=== PATIENT | male | born 1950 | race Caucasian/White ===

== ENCOUNTER 2019-07-18 15:29 | Inpatient (IN) | payer OTHER, MEDICARE ==
[~2019-07-18] VITALS: Ht 167.6 cm; Wt 82.4 kg
[~2019-07-18 15:29] MED LIST: AMLO5TAB6 PO; CAPT125TA PO; CHLO125TA PO; DOXY100T2 PO; IMIT50TA PO; PRED-351 PO; SIMV10TA21 PO
[2019-07-18] MEDS ORDERED: IBUP1TAB6 PO (15:41)
[2019-07-18] MEDS ORDERED: MORPHINE 2 MG/ML 1ML VIAL (J2270) IV ONE (16:15)
[2019-07-18] MEDS ORDERED: ONDANSETRON 4MG/2ML VIAL (J2405) IV PRN (16:15)
[2019-07-18 16:35] LABS: BASO % 0.3 % (0.0-1.0); EOS # 0.1 10^3/uL (0.0-0.5); EOS % 1.3 % (0.0-3.0); HEMATOCRIT 47.6 % (42.0-52.0); HEMOGLOBIN 15.9 g/dl (13.5-17.5); LYMPH # 1.1 10^3/uL (1.5-5.0); LYMPH % 17.7 % (24.0-44.0); MEAN CORPUSCULAR HEMOGLOBIN 31.9 pg (27.0-33.0); MEAN CORPUSCULAR HGB CONC 33.4 g/dl (32.0-36.5); MEAN CORPUSCULAR VOLUME 95.4 fl (80.0-96.0); MONO # 0.4 10^3/uL (0.0-0.8); MONO % 6.5 % (0.0-5.0); NEUTROPHILS # 4.5 10^3/uL (1.5-8.5); NEUTROPHILS % 73.9 % (36.0-66.0); PLATELET COUNT, AUTOMATED 181 10^3/uL (150-450); RED BLOOD COUNT 4.99 10^6/uL (4.30-6.10); WHITE BLOOD COUNT 6.1 10^3/uL (4.0-10.0)
[2019-07-18 16:44] LABS: ALBUMIN 4.4 GM/DL (3.2-5.2); ALT/SGPT 24 U/L (12-78); BILIRUBIN,DIRECT 0.2 MG/DL (0.0-0.2); BILIRUBIN,TOTAL 0.8 MG/DL (0.2-1.0); BLOOD UREA NITROGEN 12 MG/DL (7-18); CALCIUM LEVEL 8.9 MG/DL (8.8-10.2); CARBON DIOXIDE LEVEL 25 MEQ/L (21-32); CHLORIDE LEVEL 108 MEQ/L (98-107); CK-MB VALUE MASS 1.5 NG/ML (<3.6); CPK CREATINE PHOSPHOKINASE 89 U/L (39-308); CREATININE FOR GFR 0.96 MG/DL (0.70-1.30); GLOMERULAR FILTRATION RATE > 60.0 (>42); GLUCOSE, FASTING 105 MG/DL (70-100); LIPASE 46 U/L (73-393); MB/CK RELATIVE INDEX 1.69 (< OR =4); SODIUM LEVEL 140 MEQ/L (136-145); TOTAL PROTEIN 7.4 GM/DL (6.4-8.2); TROPONIN I < 0.02 NG/ML (< 0.10)
--- NOTE | 2019-07-18 16:52 | REP ---
INDICATION: Back pain. PROCEDURE: CT lumbar spine without contrast. COMPARISON STUDIES: None FINDINGS: No acute fracture malalignment. There is atherosclerotic change of the descending aorta and iliac arteries. Soft tissues appear unremarkable. Sclerosis seen at the SI joints bilaterally, greater on the right. CONCLUSION: No acute findings. Electronically Signed by Iftikhar Sprague MD 07/18/2019 04:44 P
--- NOTE | 2019-07-18 17:11 | REP ---
CT abdomen and pelvis without IV or oral contrast: Renal stone protocol. History: Left flank and low back pain. History of kidney stones. No comparison CT study. CT findings: Preliminary digital stable hand radiograph is unremarkable. The lung bases are clear The liver and the spleen are normal in size homogeneous in texture. Gallbladder is unremarkable. There is a small descending duodenal diverticulum. No pancreatic abnormality is seen. No adrenal lesion is seen. There is no evidence of hydronephrosis on either side. There is a small parapelvic cyst at the lower pole of the left kidney. No intrarenal calculus is observed. No ureteral stone or ureteral dilation is observed. No retroperitoneal mass or adenopathy is seen. Vascular calcifications noted in a normal caliber aorta. There is a normal appendix seen in the right lower quadrant. There is roy colonic diverticulosis without CT evidence of diverticulitis. No bony destructive lesion is appreciated. Impression: No urinary tract calculus or hydronephrosis seen. Left and right colonic diverticulosis without evidence of diverticulitis. Normal appendix. No acute abdominal or pelvic abnormality. Electronically Signed by Aquiles Jones MD 07/18/2019 06:33 P
[2019-07-18] MEDS ORDERED: LIDOCAINE 5% (LIDODERM) PATCH TD ONE (19:15)
--- NOTE | 2019-07-18 19:44 | ECGEPIP ---
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
[2019-07-18] MEDS ORDERED: CHLORTHALIDONE 12.5MG PER 1/2 TABLET PO ONE (20:00)
[2019-07-18] MEDS ORDERED: MORPHINE 4 MG/ML 1ML VIAL/SYRINGE (J2270) IV ONE (20:00)
--- NOTE | 2019-07-18 20:35 | REPVR ---
PROCEDURE INFORMATION: Exam: US Duplex Left Lower Extremity Veins, Limited Exam date and time: 07/18/2019 8:21 PM Age: 68 years old Clinical indication: Pain; Leg, upper; Left; Additional info: Lle pain, R/O dvt TECHNIQUE: Imaging protocol: Real-time Duplex ultrasound of the Left Lower Extremity with 2-D thompson scale, color Doppler flow and spectral waveform analysis with image documentation. Limited exam focused on the left lower extremity veins. COMPARISON: No relevant prior studies available. FINDINGS: Left deep veins: Unremarkable. The common femoral, femoral, proximal profunda femoral and popliteal veins are patent without thrombus. Normal Doppler waveforms. Normal compressibility and/or augmentation response. Left superficial veins: Unremarkable. Saphenofemoral junction is patent without thrombus. Soft tissues: Unremarkable. IMPRESSION: No acute findings. No evidence of deep vein thrombosis. Electronically signed by: Glynn Morfin On 07/18/2019 20:32:15 PM
[2019-07-18] MEDS ORDERED: **NOTE PATIENT COMMENT** MISC XX SCH (21:00)
[2019-07-18] MEDS ORDERED: CHLO125TA PO (22:05)
[2019-07-18] MEDS ORDERED: KETOROLAC 30 MG/ML VIAL (J1885) IV ONE (23:00)
[2019-07-18] MEDS ORDERED: PERCOCET 5MG/325MG TAB PO ONE (23:45)
[2019-07-18] MEDS ORDERED: IBUPROFEN 600 MG TAB PO ONE (23:45)
--- NOTE | 2019-07-18 23:47 | HPEPDOC ---
[facility] Medical History & Physical Date of Admission Jul 18, 2019 Date of Service: Jul 18, 2019 Primary Care Physician: ELVIS PRESCOTT M.D. Attending Physician: LEX VICENTE MD History and Physical CHIEF COMPLAINT: low back pain HISTORY OF PRESENT ILLNESS: Papito Fisher is a 68-year-old male who presented to the emergency department with worsening low back pain. He states that one week ago, she was taking at [employer] when he "wrenched his back". He states that he took some Advil for the pain that day and it improved. He states that since then his pain has been manageable until the early afternoon on 07/18. He states the pain has been achy since the injury, but became sharp and worsened, prompting his visit to the emergency department. The patient also notes he has been having burning and numbness in his left thigh over the past day. He states he did try using a heat pack on his leg which made it feel worse. He states he has always had a "normal aches in his back," but denies a history of chronic back pain, or lumbar spine injuries. . He does have a history of a kidney stone and states that the pain radiating down into his groin and leg does remind him of the same pain. He states his pain with a kidney stone was worse than his current back pain. He does note that he has a history of high blood pressure and high cholesterol but does not take the medicine that his doctor has prescribed for him for these. REVIEW OF SYSTEMS: CONSTITUTIONAL: Denies fevers, chills, night sweats, fatigue, unexpected change in weight. HEENT: Denies change in vision, change in hearing. CARDIOVASCULAR: Endorses lightheadedness episode as described above. Denies chest pain, palpitations, shortness of breath. RESPIRATORY: Denies dyspnea, cough, wheezing. GASTROINTESTINAL: Denies nausea, vomiting, abdominal pain, diarrhea, constipation, blood in stool. GENITOURINARY: Denies dysuria, urinary frequency, urinary urgency. SKIN: Denies rash, lesions. MUSCULOSKELETAL: Endorses low back pain and left thigh pain as described above. NEUROLOGICAL: Denies headache, dizziness, weakness. PSYCHIATRIC: Denies change in mood. PAST MEDICAL / SURGICAL HISTORY: Chronic Hypertension Hyperlipidemia Nephrolithiasis s/p Hand surgery s/p Inguinal hernia repair SOCIAL HISTORY: Never smoker. Occasional alcohol use. Denies history of illicit/IV drug use. Lives alone. FAMILY HISTORY: Noncontributory ALLERGIES: Please see below. HOME MEDICATIONS: Please see below. PHYSICAL EXAMINATION: VITAL SIGNS: See below GENERAL: Alert, comfortable, in no acute distress HEENT: Normocephalic, atraumatic, PERRLA, EOMI, moist mucous membranes NECK: Supple, trachea midline, no lymphadenopathy, no JVD CARDIOVASCULAR: Regular rate and rhythm, normal S1 and S2. No murmurs, rubs, or gallops RESPIRATORY: Clear to auscultation bilaterally with equal air entry bilaterally. No wheezing, rhonchi, or rales. ABDOMEN: Soft, nontender, nondistended, bowel sounds present, no masses or hepatosplenomegaly appreciated EXTREMITIES: No cyanosis or edema. Pulses 2+/4 in bilateral upper and lower extr emities SKIN: [address], warm, dry MUSCULOSKELETAL: No tenderness along the spinous processes of the thoracic or lumbar spine. Increased muscle tension in bilateral paraspinal muscles of the lumbar spine. No erythema or swelling in the lumbar spine region. NEUROLOGIC: Alert and oriented 3 to person, place and time. Cranial nerves 2-12 grossly intact. No focal deficits appreciated PSYCHIATRIC: Mood and affect appropriate LABORATORY DATA: See below. IMAGING: (Impression, per radiologist report.) Lumbar spine CT: No acute findings. Abdomen/pelvic CT: No urinary tract calculus or hydronephrosis seen. Left and right colonic diverticulosis without evidence of diverticulitis. Normal appendix. No acute abdominal or pelvic abnormality. Vascular ultrasound: Left deep veins: Unremarkable. The common femoral, femoral, proximal profunda femoral and popliteal veins are patent without thrombus. Normal Doppler waveforms. Normal compressibility and/or augmentation response. Left superficial veins: Unremarkable. Saphenofemoral junction is patent without thrombus Femur XR: No radiologist report available at this time MICROBIOLOGY: Please see below. ASSESSMENT: 68-year-old male with history of hypertension, noncompliant with medication, who is admitted for management of hypertensive urgency and management of intractable back pain PLAN: 1. Hypertensive urgency -Likely triggered by noncompliance with his meds -On arrival, his blood pressure was 232/100 -It is unlikely that his back pain is symptom caused by the hypertension. -CT of abdomen and pelvis was unremarkable. -His BUN, creatinine, TSH and calcium were within normal limits -The EKG showed possible anteroseptal infarct, but the patient does not have chest pain and his troponin was normal -.He will be admitted to the PCU for close monitoring -We will continue with chlorthalidone and amlodipine and dad labetalol when necessary for systolic blood pressure greater than 180 -He should follow-up with his PCP for the [facility] questionnaire are to determining if he needs a sleep study - We will advise him to avoid additional NSAIDs 2. Intractable low back pain. Likely musculoskeletal with nerve irritation causing burning and numbness into the left leg. - He denies falling, having urinary or fecal incontinence Pain control with acetaminophen, duloxetine, lidocaine patch, perocet x 1 and K pad -We will write a prescription for him to get Voltaren gel he formulary. DVT prophylaxis: Teds and SCDs Disposition: Admitted to PCU for observation, expect 1 midnights day Vital Signs Vital Signs Date Time Temp Pulse Resp B/P (MAP) Pulse Ox O2 Delivery O2 Flow Rate FiO2 07/18/19 22:43 200/100 (133) 07/18/19 21:59 82 22 97 Room Air 07/18/19 15:30 97.5 Laboratory Data Labs 24H Laboratory Tests 2 07/18/19 15:49: Immature Granulocyte % (Auto) 0.3, Neutrophils (%) (Auto) 73.9H, Lymphocytes (%) (Auto) 17.7L, Monocytes (%) (Auto) 6.5H, Eosinophils (%) (Auto) 1.3, Basophils (%) (Auto) 0.3, Neutrophils # (Auto) 4.5, Lymphocytes # (Auto) 1.1L, Monocytes # (Auto) 0.4, Eosinophils # (Auto) 0.1, Basophils # (Auto) 0.0, Nucleated Red Blood Cells % (auto) 0.0, Anion Gap 7L, Glomerular Filtration Rate > 60.0, Calcium Level 8.9, Total Bilirubin 0.8, Direct Bilirubin 0.2, Aspartate Amino Transf (AST/SGOT) 15, Alanine Aminotransferase (ALT/SGPT) 24, Alkaline Phosphatase 74, Total Creatine Kinase 89, Creatine Kinase MB 1.5, Creatine Kinase MB Relative Index 1.69, Troponin I < 0.02, Total Protein 7.4, Albumin 4.4, Albumin/Globulin Ratio 1.47, Lipase 46L 07/18/19 18:32: Urine Color YELLOW, Urine Appearance CLEAR, Urine pH 6.0, Urine Specific [place] 1.014, Urine Protein NEGATIVE, Urine Glucose (UA) NEGATIVE, Urine Ketones TRACEH, Urine Blood NEGATIVE, Urine Nitrite NEGATIVE, Urine Bilirubin NEGATIVE, Urine Urobilinogen 0.2, Urine Leukocyte Esterase NEGATIVE, Urine WBC (Auto) 1, Urine RBC (Auto) 1, Urine Hyaline Casts (Auto) 0, Urine Bacteria (Auto) NEGATIVE, Urine Squamous Epithelial Cells 0, Urine Mucus (Auto) SMALL, Urine Sperm (Auto) CBC/BMP Laboratory Tests 07/18/19 15:49 Home Medications Scheduled Diclofenac Sodium (Voltaren) 100 Gm Gel..gram., 1 GRAM TOP QID for pain apply to affected area(s) Allergies Coded Allergies: No Known Allergies (Unverified , 02/11/16) A-FIB/CHADSVASC A-FIB History Current/History of A-Fib/PAF?: No GME ATTESTATION GME ATTESTATION My faculty preceptor for this patient encounter was physically present during the encounter and was fully available. All aspects of the patient interview, examination, medical decision making process, and medical care plan development were reviewed and approved by the faculty preceptor. The faculty preceptor is aware and concurs with the plan as stated in the body of this note and will attest to such by his/her cosignature. ATTENDING NOTE I examined Mr. Fisher at 11:20 PM, admitted to Dr. Deshpande's note and agree the findings as documented MARIIA DESHPANDE D.O. Jul 18, 2019 23:47 LEX VICENTE MD Jul 19, 2019 03:25
[2019-07-19] VITALS (7 sets, daily range): BP systolic 140–196; BP diastolic 82–102
--- NOTE | 2019-07-19 01:54 | REP ---
Clinical: Trauma. Technique: Neutral and frog lateral views of the left femur. Findings: Osseous structures, joint spaces, and surrounding soft tissues are essentially age-appropriate. No acute fracture or dislocation. No overt osteoarthritic degenerative findings. No subcutaneous emphysema or radiodense foreign body. Impression: Age-appropriate left femur radiographs. No acute fracture dislocation. Electronically Signed by Jordi Maravilla MD 07/19/2019 01:45 A
[2019-07-19] MEDS ORDERED: VOLT1GEL15 TOP (03:33)
[2019-07-19] MEDS ORDERED: LABETALOL HCL 100 MG/20 ML VIAL IV PRN (03:45)
[2019-07-19] MEDS ORDERED: IBUPROFEN 600 MG TAB PO ONE (05:00)
[2019-07-19 05:08] LABS: BASO % 0.4 % (0.0-1.0); EOS # 0.1 10^3/uL (0.0-0.5); EOS % 1.4 % (0.0-3.0); HEMATOCRIT 47.1 % (42.0-52.0); HEMOGLOBIN 15.6 g/dl (13.5-17.5); LYMPH # 1.2 10^3/uL (1.5-5.0); LYMPH % 21.1 % (24.0-44.0); MEAN CORPUSCULAR HEMOGLOBIN 31.7 pg (27.0-33.0); MEAN CORPUSCULAR HGB CONC 33.1 g/dl (32.0-36.5); MEAN CORPUSCULAR VOLUME 95.7 fl (80.0-96.0); MONO # 0.7 10^3/uL (0.0-0.8); MONO % 11.4 % (0.0-5.0); NEUTROPHILS # 3.7 10^3/uL (1.5-8.5); NEUTROPHILS % 65.2 % (36.0-66.0); PLATELET COUNT, AUTOMATED 172 10^3/uL (150-450); RED BLOOD COUNT 4.92 10^6/uL (4.30-6.10); WHITE BLOOD COUNT 5.7 10^3/uL (4.0-10.0)
[2019-07-19 05:36] LABS: BLOOD UREA NITROGEN 11 MG/DL (7-18); CALCIUM LEVEL 8.3 MG/DL (8.8-10.2); CARBON DIOXIDE LEVEL 26 MEQ/L (21-32); CHLORIDE LEVEL 107 MEQ/L (98-107); CREATININE FOR GFR 0.92 MG/DL (0.70-1.30); GLOMERULAR FILTRATION RATE > 60.0 (>42); GLUCOSE, FASTING 102 MG/DL (70-100); POTASSIUM SERUM 3.8 MEQ/L (3.5-5.1); SODIUM LEVEL 139 MEQ/L (136-145); TROPONIN I < 0.02 NG/ML (< 0.10)
[2019-07-19] MEDS ORDERED: ACETAMINOPHEN 650MG ER TAB (TYLENOL ARTHRITIS) PO SCH (06:00)
[2019-07-19] MEDS: CHLORTHALIDONE 12.5MG PER 1/2 TABLET PO SCH (09:03)
[2019-07-19] MEDS: DULoxetine 20 MG CAP (CYMBALTA) PO SCH (09:03)
[2019-07-19] MEDS: amLODIPine 5 MG TAB PO SCH (09:03)
[2019-07-19] MEDS: **NOTE PATIENT COMMENT** MISC XX SCH (09:05)
[2019-07-19] MEDS ORDERED: IBUPROFEN 200 MG TAB PO PRN (11:00)
[2019-07-19] MEDS: PERCOCET 5MG/325MG TAB PO PRN ×2 (11:48→17:36)
--- NOTE | 2019-07-19 16:09 | IPNPDOC ---
Subjective Date Seen The patient was seen on 07/19/19. Subjective Chief Complaint/HPI Seen and examined at bedside, c/o lower back pain worse on L radiating into L thigh. Denies cp/pressure, sob, n/v/d, abdominal pain. Musculoskeletal: Reports: Back Pain, Leg Pain, Spasms Neurological: Reports: Weakness Objective Physical Examination Neuro Exam: Positive: Other (straight leg testing negative) Assessment /Plan Assessment 1. hypertensive urgency - Likely triggered by noncompliance with his meds - continue chlorthalidone, amlodipine. - labetalol prn for SBP>180. - admitted to PCU, serial enzymes negative. 2. Intractable low back pain. likely musculoskeletal with nerve irritation causing burning and numbness into the left leg. - He denies falling, having urinary or fecal incontinence Pain control with duloxetine, lidocaine patch, percocet. - PT/OT consult. - consider MRI L spine. 3. DVT ppx - SCD's/TEDs. Plan/VTE VTE Prophylaxis Ordered?: Yes VS, I&O, 24H, Fishbone Vital Signs/I&O Vital Signs Date Time Temp Pulse Resp B/P (MAP) Pulse Ox O2 Delivery O2 Flow Rate FiO2 07/19/19 09:03 88 160/92 07/19/19 08:00 97.7 16 94 Room Air I&O- Last 24 Hours up to 6 AM 07/19/19 06:00 Intake Total 0 ml Output Total 0 ml Balance 0 ml Laboratory Data 24H LABS Laboratory Tests 2 07/18/19 15:49: Immature Granulocyte % (Auto) 0.3, Neutrophils (%) (Auto) 73.9H, Lymphocytes (%) (Auto) 17.7L, Monocytes (%) (Auto) 6.5H, Eosinophils (%) (Auto) 1.3, Basophils (%) (Auto) 0.3, Neutrophils # (Auto) 4.5, Lymphocytes # (Auto) 1.1L, Monocytes # (Auto) 0.4, Eosinophils # (Auto) 0.1, Basophils # (Auto) 0.0, Nucleated Red Blood Cells % (auto) 0.0, Anion Gap 7L, Glomerular Filtration Rate > 60.0, Calcium Level 8.9, Total Bilirubin 0.8, Direct Bilirubin 0.2, Aspartate Amino Transf (AST/SGOT) 15, Alanine Aminotransferase (ALT/SGPT) 24, Alkaline Phosphatase 74, Total Creatine Kinase 89, Creatine Kinase MB 1.5, Creatine Kinase MB Relative Index 1.69, Troponin I < 0.02, Total Protein 7.4, Albumin 4.4, Albumin/Globulin Ratio 1.47, Lipase 46L 07/18/19 18:32: Urine Color YELLOW, Urine Appearance CLEAR, Urine pH 6.0, Urine Specific [place] 1.014, Urine Protein NEGATIVE, Urine Glucose (UA) NEGATIVE, Urine Ketones TRACEH, Urine Blood NEGATIVE, Urine Nitrite NEGATIVE, Urine Bilirubin NEGATIVE, Urine Urobilinogen 0.2, Urine Leukocyte Esterase NEGATIVE, Urine WBC (Auto) 1, Urine RBC (Auto) 1, Urine Hyaline Casts (Auto) 0, Urine Bacteria (Auto) NEGATIVE, Urine Squamous Epithelial Cells 0, Urine Mucus (Auto) SMALL, Urine Sperm (Auto) 07/19/19 04:51: Immature Granulocyte % (Auto) 0.5, Neutrophils (%) (Auto) 65.2, Lymphocytes (%) (Auto) 21.1L, Monocytes (%) (Auto) 11.4H, Eosinophils (%) (Auto) 1.4, Basophils (%) (Auto) 0.4, Neutrophils # (Auto) 3.7, Lymphocytes # (Auto) 1.2L, Monocytes # (Auto) 0.7, Eosinophils # (Auto) 0.1, Basophils # (Auto) 0.0, Nucleated Red Blood Cells % (auto) 0.0, Anion Gap 6L, Glomerular Filtration Rate > 60.0, Calcium Level 8.3L, Troponin I < 0.02 CBC/BMP Laboratory Tests 07/18/19 15:49 07/19/19 04:51 ARIES PULIDO MD Jul 19, 2019 10:24
--- NOTE | 2019-07-19 17:40 | ECGEPIP ---
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 Rule out prior ASMI. Nonspecific ST/T wave abnormalities Change in precordial lead placement from 07/18/19 but otherwise unchanged. Electronically Signed on 07-19-2019 17:39:43 EST by Cezar Hair
[2019-07-19] MEDS: ASPIRIN 325 MG TAB PO PRN (18:17)
[2019-07-19] MEDS ORDERED: KETOROLAC TROMETHAMINE 10 MG TAB PO ONE (20:00)
[2019-07-19] MEDS ORDERED: LIDOCAINE 5% (LIDODERM) PATCH TD SCH (21:00)
[2019-07-20] VITALS: BP 150/82
[2019-07-20] MEDS: ASPIRIN 325 MG TAB PO PRN (00:49)
[2019-07-20 04:00] VITALS: BP 154/70
[2019-07-20 05:07] LABS: HEMATOCRIT 45.7 % (42.0-52.0); HEMOGLOBIN 15.2 g/dl (13.5-17.5); MEAN CORPUSCULAR HEMOGLOBIN 31.9 pg (27.0-33.0); MEAN CORPUSCULAR HGB CONC 33.3 g/dl (32.0-36.5); MEAN CORPUSCULAR VOLUME 95.8 fl (80.0-96.0); PLATELET COUNT, AUTOMATED 181 10^3/uL (150-450); RED BLOOD COUNT 4.77 10^6/uL (4.30-6.10); WHITE BLOOD COUNT 4.5 10^3/uL (4.0-10.0)
[2019-07-20 05:37] LABS: BLOOD UREA NITROGEN 18 MG/DL (7-18); CALCIUM LEVEL 8.8 MG/DL (8.8-10.2); CARBON DIOXIDE LEVEL 27 MEQ/L (21-32); CHLORIDE LEVEL 105 MEQ/L (98-107); CREATININE FOR GFR 0.89 MG/DL (0.70-1.30); GLOMERULAR FILTRATION RATE > 60.0 (>42); GLUCOSE, FASTING 110 MG/DL (70-100); POTASSIUM SERUM 3.6 MEQ/L (3.5-5.1); SODIUM LEVEL 139 MEQ/L (136-145)
[2019-07-20 08:00] VITALS: BP 166/76
[2019-07-20 08:15] VITALS: BP 166/76
[2019-07-20] MEDS: CHLORTHALIDONE 12.5MG PER 1/2 TABLET PO SCH (08:15)
[2019-07-20] MEDS: DULoxetine 20 MG CAP (CYMBALTA) PO SCH (08:15)
[2019-07-20] MEDS: amLODIPine 5 MG TAB PO SCH (08:15)
[2019-07-20] MEDS: PERCOCET 5MG/325MG TAB PO PRN (08:16)
[2019-07-20] MEDS: **NOTE PATIENT COMMENT** MISC XX SCH (08:16)
[2019-07-20] MEDS ORDERED: AMLO5TAB6 PO (10:01)
[2019-07-20] MEDS ORDERED: CAPT125TA PO (10:01)
[2019-07-20] MEDS ORDERED: PERCOCET PO (10:01)
[2019-07-20] MEDS ORDERED: CHLO125TA PO (10:01)
[2019-07-20] MEDS ORDERED: SIMV10TA21 PO (10:06)
[2019-07-20] MEDS ORDERED: IBUP-1022 PO (10:06)
--- NOTE | 2019-07-20 10:30 | DS.PDOC ---
Discharge Summary General Date of Admission Jul 18, 2019 at 22:58 Date of Discharge 07/20/19 Discharge Summary PROCEDURES PERFORMED DURING STAY: none ADMITTING DIAGNOSES: 1. HTN urgency 2. intractable back pain DISCHARGE DIAGNOSES: 1. HTN urgency (resolved) 2. chronic lower back pain COMPLICATIONS/CHIEF COMPLAINT: back pain HISTORY OF PRESENT ILLNESS: Papito Fisher is a 68-year-old male who presented to the emergency department with worsening low back pain. He states that one week ago, she was taking at [employer] when he "wrenched his back". He states that he took some Advil for the pain that day and it improved. He states that since then his pain has been manageable until the early afternoon on 07/18. He states the pain has been achy since the injury, but became sharp and worsened, prompting his visit to the emergency department. The patient also notes he has been having burning and numbness in his left thigh over the past day. He states he did try using a heat pack on his leg which made it feel worse. He states he has always had a "normal aches in his back," but denies a history of chronic back pain, or lumbar spine injuries. . He does have a history of a kidney stone and states that the pain radiating down into his groin and leg does remind him of the same pain. He states his pain with a kidney stone was worse than his current back pain. He does note that he has a history of high blood pressure and high cholesterol but does not take the medicine that his doctor has prescribed for him for these. Patient was admitted to the hospital for further evaluation and treatment. HOSPITAL COURSE: Patient was admitted and treated for the following conditions: 1. hypertensive urgency - Likely triggered by noncompliance with his outpatient medications. - started on amlodipine and chlorthalidone, clonidine. - patients BP improved during his stay. - stable for discharge, patient advised on medication compliance and PCP follow up. 2. Intractable low back pain. likely musculoskeletal with nerve irritation causing burning and numbness into the left leg. - He denies falling, having urinary or fecal incontinence started on pain control with duloxetine, lidocaine patch, percocet. - seen by PT, recommending outpatient physical therapy, patient is agreeable to same. DISCHARGE MEDICATIONS: Please see below. ALLERGIES: Please see below. PHYSICAL EXAMINATION ON DISCHARGE: VITAL SIGNS: Please see below. GENERAL: awake, NAD, alert HEENT: NCAT, anicteric sclera, PERRLA NECK: supple, no JVD, no thyromegaly CARDIOVASCULAR EXAMINATION: NS1S2, regular, no murmurs, rubs RESPIRATORY EXAMINATION: CTA b/l, no wheezes, rales, rhonchi ABDOMINAL EXAMINATION: NT/ND, positive bowel sounds x 4, no organomegaly EXTREMITIES: mild tenderness L lower back SKIN: warm, no rashes NEUROLOGICAL EXAMINATION: AAO x 3, motor 5/5, sensory grossly intact PSYCHIATRIC EXAMINATION: calm, cooperative, normal mood/affect LABORATORY DATA: Please see below. IMAGING: none ACTIVITY: As tolerated DIET: low sodium diet DISPOSITION: home with outpatient physical therapy DISCHARGE INSTRUCTIONS: 1. please follow up with your PCP within 1 week after discharge DISCHARGE CONDITION: stable TIME SPENT ON DISCHARGE: Greater than 30 minutes. Vital Signs/I&Os Vital Signs Date Time Temp Pulse Resp B/P (MAP) Pulse Ox O2 Delivery O2 Flow Rate FiO2 07/20/19 08:16 20 07/20/19 08:15 74 166/76 07/20/19 08:00 98.2 98 Room Air I&O- Last 24 Hours up to 6 AM 07/20/19 05:59 Intake Total 720 ml Output Total 200 ml Balance 520 ml Laboratory Data Labs 24H Laboratory Tests 2 07/20/19 04:46: Nucleated Red Blood Cells % (auto) 0.0, Anion Gap 7L, Glomerular Filtration Rate > 60.0, Calcium Level 8.8 CBC/BMP Laboratory Tests 07/20/19 04:46 Discharge Medications Scheduled Amlodipine Besylate (Amlodipine Besylate) 5 Mg Tablet, 5 MG PO DAILY Captopril (Captopril) 12.5 Mg Tablet, 12.5 MG PO BID for high blood pressure Chlorthalidone (Chlorthalidone) 25 Mg Tablet, 12.5 MG PO DAILY Diclofenac Sodium (Voltaren) 100 Gm Gel..gram., 1 GRAM TOP QID for pain apply to affected area(s) Simvastatin (Simvastatin) 10 Mg Tablet, 1 TAB PO QPM Scheduled PRN Ibuprofen (Ibuprofen) 600 Mg Tablet, 600 MG PO Q6H PRN for PAIN LEVEL 1-5 Oxycodone/Acetaminophen (Oxycodone-Acetaminophen 5-325) 1 Each Tablet, 1 TAB PO Q6HP PRN for MILD/MODERATE PAIN (PS 1-7) Allergies Coded Allergies: No Known Allergies (Unverified , 02/11/16) ARIES PULIDO MD Jul 20, 2019 10:25
== END 2019-07-20 11:45 | disposition home or self-care (01) | DRG 305 ==
LOC: M ED 15:29 → M ED INP 22:58 → ENRESERVTM 23:57 → ENRESERVDT 23:57 → M PCU 07-19 00:38
PROVIDERS: ADMIT Internal Medicine; ATTEND Internal Medicine
DX: I16.0 Hypertensive urgency (principal); M54.5 Low back pain; Z79.899 Other long term (current) drug therapy; E78.5 Hyperlipidemia, unspecified; I10 Essential (primary) hypertension; Z91.19 Patient's noncompliance with other medical treatment and regimen

== ENCOUNTER 2019-08-08 09:23 | Outpatient (RCR) | payer MEDICARE, OTHER ==
[~2019-08-08 09:23] MED LIST changes: +IBUP-1022 PO; +IBUP1TAB6 PO; +PERCOCET PO; +VOLT1GEL15 TOP
== END 2019-08-09 ==
LOC: M PT 09:23
PROVIDERS: ATTEND Family Medicine
DX: M54.5 Low back pain (principal)

== ENCOUNTER 2019-08-19 15:05 | Outpatient (RCR) | payer OTHER | END 2019-09-07 | LOC: M PT 15:05 | PROVIDERS: ATTEND Family Medicine | DX: M54.5 Low back pain (principal) ==

== ENCOUNTER → 2024-06-19 | Outpatient (REF) | payer MEDICARE ==
[~2024-06-19] MED LIST changes: +AMLO1TAB24 PO; -AMLO5TAB6 PO; +NORV5TAB PO; +SIMV20TA22 PO
== END ==
LOC: M LAB REF 16:08
PROVIDERS: ATTEND Family Medicine
DX: M54.50 Low back pain, unspecified (principal); Z87.442 Personal history of urinary calculi; Z79.899 Other long term (current) drug therapy

== ENCOUNTER 2024-08-19 08:32 | Day surgery (SDC) | payer MEDICARE, OTHER ==
[~2024-08-19] VITALS: Ht 162.6 cm; Wt 85.7 kg
[~2024-08-19 08:32] MED LIST changes: +LIDOCAINE 2% 100MG/5ML SDV (FOR ANES.) As Ordered ONE; +propofoL 200 MG/20 ML VIAL As Ordered ONE
[2024-08-19] MEDS ORDERED: ePHEDrine SULFATE 25 MG/5 ML(5MG/ML) SYRINGE As Ordered ONE (09:18)
[2024-08-19 09:36] VITALS: TEMP 97
[2024-08-19 09:55] VITALS: BP 133/62; O2SAT 99
== END 2024-08-19 10:09 | disposition home or self-care (01) ==
LOC: M OPP 08:32
PROVIDERS: ATTEND Internal Medicine Gastroenterology
DX: Z12.11 Encounter for screening for malignant neoplasm of colon (principal); K57.30 Diverticulosis of large intestine without perforation or abscess without bleeding; K64.0 First degree hemorrhoids; Z79.899 Other long term (current) drug therapy